=== PATIENT | male | born 1985 | race Two or more races ===

== ENCOUNTER 2017-08-07 12:52 | Emergency (ER) | payer MEDICAID ==
[~2017-08-07] VITALS: Ht 190.5 cm; Wt 66.7 kg
[2017-08-07 13:06] VITALS: BP 112/60
== END 2017-08-07 17:19 | disposition left against medical advice (07) ==
LOC: ER 12:52
DX: F41.9 Anxiety disorder, unspecified (principal); Z53.21 Procedure and treatment not carried out due to patient leaving prior to being seen by health care provider